=== PATIENT | female | born 1960 | race Caucasian/White ===

== ENCOUNTER 2018-04-05 02:02 | Emergency (ER) | payer OTHER ==
[2018-04-05 04:07] LABS: Urine Blood 1+ (NEG); Urine Glucose NEGATIVE (NEG); Urine Protein NEGATIVE (NEG)
[2018-04-05] MEDS ORDERED: ONDANSETRON 4 MG/2 ML VIAL ONE (05:03)
[2018-04-05] MEDS ORDERED: NA CHLORIDE 0.9% 500 ML ONE (05:03)
[2018-04-05] MEDS ORDERED: CEFTRIAXONE 1000 MG/VIAL ONE (05:04)
[2018-04-05 05:24] LABS: Absolute Lymphocytes (CBC) 0.6 K/uL (0.7-4.9); Absolute Monocytes 0.6 K/uL (0.1-1.3); Absolute Neutrophil 10.6 K/uL (1.8-8.0); Basophils % 0.2 % (0-1.3); Eosinophils % 0.1 % (0-4.4); Hematocrit 44.2 % (36.0-45.0); Lymphocytes % 4.7 % (15.3-44.8); MCH 30.1 pg (27.0-35.0); MCV 88.6 fL (80-100); MPV 9.2 fL (7.6-11.3); Monocytes % 5.5 % (3.3-12.3); RBC Red Blood Cell Count 4.98 M/uL (3.86-4.86)
[2018-04-05 05:26] LABS: Potassium 3.7 mEq/L (3.6-5.0)
[2018-04-05] MEDS ORDERED: TAMSULOSIN 0.4 MG SR CAP ONE (05:40)
--- NOTE | 2018-04-05 05:58 | EDPHYS ---
Physician Documentation [facility] Name: Kelin Suarez Age: 57 yrs Sex: Female : 1960 Arrival Date: 04/05/2018 Time: 02:07 Bed 20 Private MD: ED Physician Jose M Goddard HPI: 04/05 03:24 This 57 yrs old Female presents to ER via Ambulatory with complaints of Back rn Pain, Nausea. 03:24 The patient presents with pain that is acute. The symptoms are located in the low back, rn left mid back. The pain radiates to the abdomen. Associated signs and symptoms: Pertinent positives: dysuria. Modifying factors: The patient symptoms are alleviated by nothing, the patient symptoms are aggravated by nothing. Severity of symptoms: At their worst the symptoms were moderate, in the emergency department the symptoms are unchanged. The patient has not experienced similar symptoms in the past. Reports left sided flank pain, radiates to abd, assoc with increased urinary frequency and dysuria, + nausea. . Historical: - Allergies: 02:24 No Known Allergies; bb - Home Meds: 02:24 amlodipine 5 mg tab 1 tab once daily [Active]; carvedilol 6.25 mg oral tab 1 tab 2 bb times per day [Active]; - PMHx: 02:24 Hypertension; bb - PSHx: 02:24 lipoma removal; bb - Immunization history:: Adult Immunizations unknown. - Social history:: Smoking status: Patient/guardian denies using tobacco, Patient/guardian denies using alcohol, street drugs. - Family history:: not pertinent. - Hospitalizations: : No recent hospitalization is reported. ROS: 03:24 Constitutional: Negative for fever, chills, and weight loss, Eyes: Negative for injury, rn pain, redness, and discharge, Neck: Negative for injury, pain, and swelling, Cardiovascular: Negative for chest pain, palpitations, and edema, Respiratory: Negative for shortness of breath, cough, wheezing, and pleuritic chest pain, Abdomen/GI: Negative for vomiting, diarrhea, and constipation, Back: Negative for injury MS/Extremity: Negative for injury and deformity, Skin: Negative for injury, rash, and discoloration, Neuro: Negative for headache, weakness, numbness, tingling, and seizure. Exam: 03:24 Constitutional: This is a well developed, well nourished patient who is awake, alert, rn and in no acute distress. Head/Face: Normocephalic, atraumatic. Eyes: Pupils equal round and reactive to light, extra-ocular motions intact. Lids and lashes normal. Conjunctiva and sclera are non-icteric and not injected. Cornea within normal limits. Periorbital areas with no swelling, redness, or edema. Neck: Trachea midline, no thyromegaly or masses palpated, and no cervical lymphadenopathy. Supple, full range of motion without nuchal rigidity, or vertebral point tenderness. No Meningismus. Abdomen/GI: Soft, non-tender, with normal bowel sounds. No distension or tympany. No guarding or rebound. No evidence of tenderness throughout. Back: No spinal tenderness. No costovertebral tenderness. Full range of motion. MS/ Extremity: Pulses equal, no cyanosis. Neurovascular intact. Full, normal range of motion. Equal circumference. Neuro: Awake and alert, GCS 15, oriented to person, place, time, and situation. Cranial nerves II-XII grossly intact. Motor strength 5/5 in all extremities. Sensory grossly intact. Cerebellar exam normal. Normal gait. Vital Signs: 02:24 BP 163 / 85; Pulse 65; Resp 18 S; Temp 97.9(TE); Pulse Ox 96% on R/A; Weight 80.74 kg bb (R); Height 5 ft. 6 in. (167.64 cm) (R); Pain 7/10; 03:23 BP 164 / 81; Pulse 80; Resp 17 S; Pulse Ox 95% on R/A; Pain 7/10; jd3 04:17 BP 170 / 80; Pulse 71; Resp 18 S; Pulse Ox 96% on R/A; jd3 05:19 BP 178 / 86; Pulse 79; Resp 16 S; Pulse Ox 97% on R/A; jd3 02:24 Body Mass Index 28.73 (80.74 kg, 167.64 cm) bb MDM: 02:20 Patient medically screened. rn 05:55 Differential diagnosis: Pyelonephritis Ureterolithiasis UTI. Data reviewed: vital rn signs, nurses notes, lab test result(s), radiologic studies, CT scan, and as a result, I will discharge patient. Counseling: I had a detailed discussion with the patient and/or guardian regarding: the historical points, exam findings, and any diagnostic results supporting the discharge/admit diagnosis, lab results, radiology results, the need for outpatient follow up, to return to the emergency department if symptoms worsen or persist or if there are any questions or concerns that arise at home. Response to treatment: the patient's symptoms have markedly improved after treatment. Special discussion: Based on the history and exam findings, there is no indication for further emergent testing or inpatient evaluation. ED course: Offered patient admission for 6mm stone with hydro, patient chooses to home home for trial of passage, return precautions given and understood. By time result of CT scan came back, pain markedly improved, states feels much better, likely dropped into bladder. Afebrile and stable vitals. . 04/05 02:31 Order name: Urine Microscopic Only rn 04/05 02:31 Order name: Urine Culture rn 04/05 02:54 Order name: Urine Dipstick--Ancillary (enter results); Complete Time: 04:38 em1 04/05 04:41 Order name: CBC with Diff rn 04/05 04:41 Order name: Basic Metabolic Panel rn 04/05 04:41 Order name: Blood Culture Adult (2) rn 04/05 02:31 Order name: Urine Dipstick-Ancillary (obtain specimen); Complete Time: 02:53 rn 04/05 02:53 Order name: CT Stone Protocol rn 04/05 04:41 Order name: IV Start; Complete Time: 05:04 rn 04/05 05:25 Order name: Manual Differential EDMS Administered Medications: 05:18 Drug: Rocephin - (cefTRIAXone) 1 grams Route: IVPB; Infused Over: 30 mins; Site: left jd3 antecubital; 05:46 Follow up: Response: No adverse reaction; IV Status: Completed infusion jd3 05:18 Drug: NS 0.9% 500 ml Route: IV; Rate: bolus; Site: left antecubital; jd3 06:07 Follow up: Response: No adverse reaction; IV Status: Completed infusion; IV Intake: jd3 500ml 05:18 Drug: Zofran 4 mg Route: IVP; Site: left antecubital; jd3 05:46 Follow up: Response: No adverse reaction jd3 05:46 Drug: Flomax 0.4 mg Route: PO; jd3 06:07 Follow up: Response: No adverse reaction jd3 Disposition: 04/05/18 05:57 Discharged to Home. Impression: Ureterolithiasis. - Condition is Stable. - Discharge Instructions: Kidney Stones. - Prescriptions for Zofran ODT 4 mg Oral tablet,disintegrating - place 1 tablet by TRANSLINGUAL route every 8 hours As needed; 15 tablet. Cipro 500 mg Oral Tablet - take 1 tablet by ORAL route every 12 hours for 10 days; 20 tablet. Tylenol- Codeine #3 300-30 mg Oral Tablet - take 1 tablet by ORAL route every 6 hours As needed; 20 tablet. Flomax 0.4 mg Oral Capsule, Sust. Release 24 hr - take 1 capsule by ORAL route once daily 1/2 hour following the same meal each day; 3 capsule. - Medication Reconciliation Form, Thank You Letter, Antibiotic Education, Prescription Opioid Use form. - Follow up: Batsheva Curtis MD; When: As needed; Reason: Recheck today's complaints, Re-evaluation by your physician. - Problem is new. - Symptoms have improved. Signatures: Dispatcher [employer] EDElizabeth Lawson RN RN bb Nieto, Roman, MD MD rn Davies, Jonathon, RN RN jd3 Corrections: (The following items were deleted from the chart) 06:07 05:57 04/05/2018 05:57 Discharged to Home. Impression: Ureterolithiasis. Condition is jd3 Stable. Forms are Medication Reconciliation Form, Thank You Letter, Antibiotic Education, Prescription Opioid Use. Follow up: Batsheva Curtis; When: As needed; Reason: Recheck today's complaints, Re-evaluation by your physician. Problem is new. Symptoms have improved. rn
--- NOTE | 2018-04-05 05:58 | ER ---
Nurse's Notes [facility] Name: Kelin Suarez Age: 57 yrs Sex: Female : 1960 Arrival Date: 04/05/2018 Time: 02:07 Bed 20 Private MD: Diagnosis: Ureterolithiasis Presentation: 04/05 02:20 Presenting complaint: Patient states: she started having back pain since approx 2000 bb last night with burning with urination and she vomited x 3 since midnight. Transition of care: patient was not received from another setting of care. Onset of symptoms was April 04, 2018. Initial Sepsis Screen: Does the patient meet any 2 criteria? No. Patient's initial sepsis screen is negative. Does the patient have a suspected source of infection? No. Patient's initial sepsis screen is negative. Care prior to arrival: None. 02:20 Method Of Arrival: Ambulatory bb 02:20 Acuity: SUNDAR 3 bb Historical: - Allergies: 02:24 No Known Allergies; bb - Home Meds: 02:24 amlodipine 5 mg tab 1 tab once daily [Active]; carvedilol 6.25 mg oral tab 1 tab 2 bb times per day [Active]; - PMHx: 02:24 Hypertension; bb - PSHx: 02:24 lipoma removal; bb - Immunization history:: Adult Immunizations unknown. - Social history:: Smoking status: Patient/guardian denies using tobacco, Patient/guardian denies using alcohol, street drugs. - Family history:: not pertinent. - Hospitalizations: : No recent hospitalization is reported. Screenin:02 Abuse screen: Denies threats or abuse. Nutritional screening: No deficits noted. jd3 Tuberculosis screening: No symptoms or risk factors identified. Fall Risk None identified. Assessment: 02:41 General: Appears in no apparent distress. uncomfortable, Behavior is calm, cooperative, jd3 appropriate for age. Pain: Complains of pain in posterior aspect of left lateral abdomen Pain currently is 7 out of 10 on a pain scale. Quality of pain is described as sharp, Also complains of nausea. Neuro: Level of Consciousness is awake, alert, obeys commands, Oriented to person, place, time, situation. Cardiovascular: Heart tones S1 S2 present Capillary refill < 3 seconds Patient's skin is warm and dry. Respiratory: Airway is patent Respiratory effort is even, unlabored, Respiratory pattern is regular, symmetrical, Breath sounds are clear bilaterally. GI: Abdomen is round Bowel sounds present X 4 quads. Abd is soft and non tender X 4 quads. Reports nausea. : No signs and/or symptoms were reported regarding the genitourinary system. EENT: No signs and/or symptoms were reported regarding the EENT system. Derm: Skin is intact, Skin is dry, Skin is normal, Skin temperature is warm. Musculoskeletal: Circulation, motion, and sensation intact. Range of motion: intact in all extremities. 03:22 Reassessment: Patient appears in no apparent distress at this time. Patient and/or jd3 family updated on plan of care and expected duration. Pain level reassessed. Patient is alert, oriented x 3, equal unlabored respirations, skin warm/dry/pink. 04:17 Reassessment: Patient appears in no apparent distress at this time. No changes from jd3 previously documented assessment. Patient and/or family updated on plan of care and expected duration. Pain level reassessed. Patient is alert, oriented x 3, equal unlabored respirations, skin warm/dry/pink. 05:20 Reassessment: Patient appears in no apparent distress at this time. Patient and/or jd3 family updated on plan of care and expected duration. Pain level reassessed. Patient is alert, oriented x 3, equal unlabored respirations, skin warm/dry/pink. 06:05 Reassessment: Patient appears in no apparent distress at this time. Patient and/or jd3 family updated on plan of care and expected duration. Pain level reassessed. Patient is alert, oriented x 3, equal unlabored respirations, skin warm/dry/pink. pt reported understanding of discharge instructions, even and steady gait upon discharge. Vital Signs: 02:24 BP 163 / 85; Pulse 65; Resp 18 S; Temp 97.9(TE); Pulse Ox 96% on R/A; Weight 80.74 kg bb (R); Height 5 ft. 6 in. (167.64 cm) (R); Pain 7/10; 03:23 BP 164 / 81; Pulse 80; Resp 17 S; Pulse Ox 95% on R/A; Pain 7/10; jd3 04:17 BP 170 / 80; Pulse 71; Resp 18 S; Pulse Ox 96% on R/A; jd3 05:19 BP 178 / 86; Pulse 79; Resp 16 S; Pulse Ox 97% on R/A; jd3 02:24 Body Mass Index 28.73 (80.74 kg, 167.64 cm) bb ED Course: 02:07 Patient arrived in ED. al2 02:20 Jose M Goddard MD is Attending Physician. rn 02:22 Triage completed. bb 02:24 Arm band placed on Patient placed in an exam room, on a stretcher, on pulse oximetry. bb 02:41 Ang Meyer RN is Primary Nurse. jd3 03:03 Patient has correct armband on for positive identification. Bed in low position. Call jd3 light in reach. Side rails up X2. 04:17 CT Stone Protocol In Process Unspecified. EDMS 04:55 Inserted saline lock: 20 gauge in left antecubital area, using aseptic technique. Blood jd3 collected. 05:57 Batsheva Curtis MD is Referral Physician. rn 06:06 No provider procedures requiring assistance completed. IV discontinued, intact, jd3 bleeding controlled, No redness/swelling at site. Pressure dressing applied. Administered Medications: 05:18 Drug: Rocephin - (cefTRIAXone) 1 grams Route: IVPB; Infused Over: 30 mins; Site: left jd3 antecubital; 05:46 Follow up: Response: No adverse reaction; IV Status: Completed infusion jd3 05:18 Drug: NS 0.9% 500 ml Route: IV; Rate: bolus; Site: left antecubital; jd3 06:07 Follow up: Response: No adverse reaction; IV Status: Completed infusion; IV Intake: jd3 500ml 05:18 Drug: Zofran 4 mg Route: IVP; Site: left antecubital; jd3 05:46 Follow up: Response: No adverse reaction jd3 05:46 Drug: Flomax 0.4 mg Route: PO; jd3 06:07 Follow up: Response: No adverse reaction jd3 Intake: 06:07 IV: 500ml; Total: 500ml. jd3 Outcome: 05:57 Discharge ordered by . rn 06:06 Discharged to home ambulatory. jd3 06:06 Condition: stable 06:06 Discharge instructions given to patient, Instructed on discharge instructions, follow up and referral plans. medication usage, Demonstrated understanding of instructions, follow-up care, medications, Prescriptions given X 4. 06:07 Patient left the ED. jd3 Signatures: Dispatcher [employer] Elizabeth Montiel RN RN bb Nieto, Roman, MD MD rn Davies, Jonathon, RN RN jJennifer Day Corrections: (The following items were deleted from the chart) 03:23 02:41 Pain: Complains of pain in posterior aspect of left lateral abdomen Pain jd3 currently is 10 out of 10 on a pain scale. Quality of pain is described as sharp, Also complains of nausea, jd3
[2018-04-05 06:03] LABS: Urine Culture Reflex Order NOT NEEDED
[2018-04-05 06:05] LABS: Urine Bacteria <20 /HPF (<20)
[2018-04-05 06:08] LABS: Blood Morphology Comment NOT SEEN (NOT SEEN); Platelet Estimate ADEQ
--- NOTE | 2018-04-05 08:38 | RAD REPORT ---
EXAM DESCRIPTION: CT - Stone Protocol - 04/05/2018 6:34 am CLINICAL HISTORY: Flank pain. COMPARISON: None. TECHNIQUE: Axial images were obtained without oral or IV contrast. Lack of contrast limits solid org an and vascular assessment. The [id number] spans the entirety of the system partially obscuring uppermost abdomen and lung bases. Coronal reformatted images were obtained and reviewed. All CT scans are performed using dose optimization technique as appropriate and may include automated exposure control or mA/KV adjustment according to patient size. FINDINGS: The lower lung wiley are clear. Imaged portions of the liver and spleen show no suspicious findings on non-contrast imaging. The panc reas and adrenal glands are normal. No pathologic lymphadenopathy in the abdomen or pelvis. 5 mm stone (780 HU) is present at the left UVJ resulting moderate left-sided hydronephrosis. No right -sided stone or hydronephrosis seen. No bowel obstruction, free air, free fluid or abscess. Normal appendix noted.Mild splenomegaly. Moderate lower lumbar degenerative changes. IMPRESSION: 5 mm stone (780 HU) at the left UVJ resulting in moderate left hydronephrosis.
== END 2018-04-05 06:07 | disposition home or self-care (01) ==
LOC: ER 02:02
DX: N20.1 Calculus of ureter (principal); I10 Essential (primary) hypertension
CPT/HCPCS: 36415; 74176; 76377; 80048; 81003; 81015; 85025; 87040; 87086; 87088; 96365; 96375; 99284; J2405